=== PATIENT | female | born 1995 | race Caucasian/White ===

== ENCOUNTER 2017-01-31 08:41 | Inpatient (IN) | payer OTHER ==
[~2017-01-31] VITALS: Ht 149.9 cm; Wt 67.1 kg
[~2017-01-31 08:41] MED LIST: DOCU250C7 PO; OXYC5TAB72 PO; TYL325 PO
[2017-01-31] MEDS ORDERED: Ondansetron 2 mg/mL 2 mL Inj ONE (10:41)
[2017-01-31] MEDS ORDERED: Oxytocin 10 Unit/mL Inj ONE (10:41)
[2017-01-31] MEDS ORDERED: Morphine PF 1 mg/mL 10 mL Inj ONE (10:41)
[2017-01-31] MEDS ORDERED: Phenylephrine 10,000 mCg/mL Inj ONE (10:41)
[2017-01-31] MEDS ORDERED: Lidocaine PF 2% 10 mL Inj ONE (10:41)
[2017-01-31] MEDS ORDERED: Hemorrhage Kit, Post Partum XX ONE ×2 (10:45→18:35)
[2017-01-31] MEDS ORDERED: Methylergonovine 0.2 mg/mL Inj IM PRN ×2 (10:45→18:35)
[2017-01-31] MEDS ORDERED: Sodium Chloride LOK Flush 10 mL Syringe IVFLUSH PRN ×2 (10:45→18:35)
[2017-01-31] MEDS ORDERED: Oxytocin 30 Units/500 mL LR 30 UNITS in IV Premix 1 EACH IV PRN ×2 (10:45→18:35)
[2017-01-31] MEDS ORDERED: Carboprost 250 mCg/mL Inj IM PRN ×2 (10:45→18:35)
[2017-01-31] MEDS ORDERED: fentaNYL-PF 50 mCg/mL 2 mL Inj IVPUSH PRN (10:45)
[2017-01-31] MEDS ORDERED: Oxytocin 10 Unit/mL Inj IM PRN ×2 (10:45→18:35)
[2017-01-31 12:29] LABS: Mean Corpuscular Hemoglobin 29.7 pg (27.0-35.0); Mean Corpuscular Volume 89.6 fL (81-100)
[2017-01-31] MEDS: Lactated Ringer's 1,000 ML IV PRN (12:54)
[2017-01-31] MEDS ORDERED: fentaNYL 2 mCg/mL-Bupivicaine 0.125% 100 mL Premix EPIDURAL ONE (13:18)
--- NOTE | 2017-01-31 14:24 | HP ---
[address] [address] HISTORY AND PHYSICAL PATIENT: SUSANA DODD : 1995 MR#: [id number] ADMIT: 01/31/2017 JOB ID: [id number] CHIEF COMPLAINT: The patient presented complaining of contractions. HISTORY OF PRESENTING ILLNESS: This is a 21 years old 2, para 0-0-1-0 at 38 weeks and five days with expected date of delivery of February 09, 2017 dated by a 20 week ultrasound. The patient's complicated with: 1. Gestational diabetes on metformin. 2. Chronic GERD. 3. Marijuana use during . Patient stopped September 2016. 4. 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 5. Inadequate Pap smear. Plan for repeat Pap smear after delivery. 6. Oligohydramnios borderline, weak GIGI. Last GIGI was January 27, 2017, was 8 cm. 7. Chronic back pain. 8. History of suction D and C at 10 weeks. The patient presented today to visit with complaint of contractions and was sent to the [facility]. The cervix was 3 cm at presentation. On re-evaluation cervix was 3.5, 90% with bulging bag. The patient was admitted and around 11 a.m. had a spontaneous rupture of membranes. Meconium stained fluid. GYNECOLOGIC HISTORY: Last menstrual period unknown. Menstrual cycle is regular, every 1-3 months, lasts 3-7 days. Denies history of sexually transmitted infections. No history of herpes genital outbreak but she does have history of oral lesions and several positive for HSV 1 and 2. No history of abnormal Pap smear. Last Pap smear was unsatisfactory. History of suction D and C x1 at 10 weeks gestation. CONTROL: Used control control pills in the past and is considering a Mirena IUD for control. PAST OBSTETRIC HISTORY: She is 2, para 0-0-1-0, with a history of elective termination of at 10 weeks of gestation with suction D and C. PAST MEDICAL HISTORY: 1. History of chronic GERD. 2. History of chronic back pain. PAST SURGICAL HISTORY: Suction D and C. MEDICATIONS: 1. vitamins. 2. Acyclovir 500 mg q.12 hours started January 23, 2017. 3. Metformin 500 mg twice daily. 4. Vitamin D 2000 units daily. ALLERGIES: No known drug allergies. FAMILY HISTORY: Stroke maternal grandmother. Diabetes cousin and great grandmother. SOCIAL HISTORY: Denies alcohol or illicit drug abuse. Nonsmoker. She quit marijuana use September 2016. REVIEW OF SYSTEMS: A 10 point review of systems is negative except for the items in the history of the presenting illness. PHYSICAL EXAMINATION: Vital signs: BP 116/62, HR 71, SaO2 100% on RA General: Alert, oriented to time, place and person. Head: Normocephalic, atraumatic. Neck: Supple. Chest: Equal air entry bilaterally. No added sounds. Cardiovascular: Regular rate and rhythm. S1 plus S2 plus zero. Abdomen is gravid. No tenderness. Fundal height 38 cm. Pelvic examination as per RN on admission, 3.5 cm, 90% effaced, and bulging bag with spontaneous rupture of membrane noted later at approximately 11 a.m. Meconium stained fluid. Sterile speculum examination: Normal perineum , urethra and glands, normal vaginal epithelium, normal cervix with no evidence of HSV lesions. Cervix 5 cm/ 100%/-2 exam was done at 1330. LABORATORIES: labs: Blood type is A positive. Rubella immune. RPR nonreactive. Hepatitis B surface antigen negative, antibody screening is negative. Urine culture contaminated with lactobacillus. Diabetes screening elevated 175 at 25 weeks and 6 days and abnormal three hours glucose tolerance test. One hour fasting was 81, one hour was 220, two hours was 179, three hours was 124. HIV screening is negative. Group B strep culture negative on January 23, 2017. Baseline preeclampsia labs within normal limits were done at the [facility]. Protein creatinine ratio of 0.1. Gonorrhea chlamydia screening negative. Last growth ultrasound at the [facility] was December 29, 2016 with estimated weight of 36th percentile. Last GIGI January 27, 2017 was 8 cm. Presentation was cephalic. Admission labs: WNC 14.6, Hgb 13.1, Hct 39.1%, Plt 186, 000. ASSESSMENT: 1. This is a 21-year-old 2, para 0-0-1-0, at 38 weeks and five days with expected date of delivery of February 09, 2017 with active labor and spontaneous rupture of membrane at 11 a.m. January 31, 2017 with meconium stained fluid. Category one heart tone tracing. 2. Gestational diabetes on metformin. 3. History of positive HSV serology. No history of HSV lesions on suppressive therapy. Denies any recent lesions or prodromal symptoms, no lesions by Steril speculum exam. PLAN: Admission orders and labs were placed and anticipate normal vaginal delivery. MTDD
[2017-01-31] MEDS ORDERED: Lactated Ringer's 500 ML IV ONE (14:27)
[2017-01-31] MEDS ORDERED: Ondansetron 2 mg/mL 2 mL Inj IVPUSH PRN (14:30)
[2017-01-31] MEDS ORDERED: EPHEDrine Sulfate 50 mg/mL Inj IVPUSH PRN (14:30)
[2017-01-31] MEDS ORDERED: Atropine 1 mg/10 mL (Code) Syringe IVPUSH PRN (14:30)
[2017-01-31] MEDS ORDERED: Phenylephrine/NS-PF 100 mCg/mL 5 mL Syringe IVPUSH PRN (14:30)
[2017-01-31] MEDS ORDERED: fentaNYL 2 mCg/mL-Bupiv 0.125% 100 ML EPIDURAL SCH (14:30)
--- NOTE | 2017-01-31 14:36 | PCM.HPANE ---
Patient Data Date of Service: Jan 31, 2017 Surgeon Admitting Provider:Jazmyn Pierson MD Attending Provider:Jazmyn Pierson MD Primary Care Physician:Jazmyn Pierson MD Other Provider:Paco Mendez Anesthesia Reason for Visit Term Early Labor TERM EARLY LABOR Ht/WT & BMI Body Mass Index Allergies Coded Allergies: ibuprofen (Verified Adverse Reaction, Mild, STOMACH SWELLS, 07/21/12) Past Anesthesia History Anesthesia History: Denies:: Abnormal Airway, Anesthesia Reactions, Difficult Intubation, Fam Anesthesia Reaction, Fam Malignant Hypertherm, Malignant Hyperthermia Medications Reported Medications Acetaminophen-Expunged Drug, Do Not Renew! (Tylenol-Expunged Drug, Do Not Renew! )325 Mg [id number] Mg PO BID 07/21/12 Docusate Sod-Expunged Drug, Do Not Renew! 250 Mg [id number] Mg PO BID 07/21/12 oxyCODONE-Expunged, Do Not Renew! 5 Mg Tablet5 Mg PO EVERY 4HOURS PRN 1-2 TBAS 07/21/12 History History of ENT Problems?: No HEENT History: Denies:: Abnormal Airway Cataracts Difficult Intubation Dysphagia Glaucoma Hearing Problem Sinus Problem TMJ Denture Type: None Teeth Condition: Within Normal Limits Hx of Heart Problems?: No Cardiovascular History: Positive for:: Chest Pain Denies:: AICD Abdominal Aortic Aneurism Atrial Fibrillation Cardiac Surgery Congestive Heart Failure Coronary Artery Disease Edema Heart Murmur Hypertension Irregular Heartbeat Pacemaker Peripheral Vascular Rheumatic Fever Thrombophlebitis Valvular Heart Disease Other History/Comments Negative cardiac W/U without recurrent Sx/Pt, Mother Hx of Respiratory Problem?: No Respiratory History: Denies:: Asthma COPD Chest Surgery Cough Dyspnea Emphysema Hemoptysis Oxygen Administration Pneumonia Pulmonary Embolism Tuberculosis Use of C-PAP Machine Use of Inhalers / NEBS Hx Neurologic Problems?: No Hx of GI Problems?: No Hx of Problems?: No Hx Musculoskeletal Problems?: No Hx Surgeries?: No Other Pertinent History: Mother relates vague, nonspecific Hx of CP without provocative activity or noted pattern through high school years. Pt enies recent events. Mother claims extensive w/u involving crads, GI, General Hx Alcohol Use: NoHx Substance Use: No Smoking Status: Never Smoker Unknown if Ever Smoker Have You Smoked inLast 12 mo: No Stop/Bang Treated for Sleep Apnea?: No Do You Have a CPAP Machine?: No S-Snoring: Do You Snore Loudly: No T-Tired: feel tired, fatigued: No O-Obsered: Observed not breath: No P-Blood Pressure: treated: No B- Body Mass Index > 35 kg/m2: No A- Age over 50: No N- Neck Large Circumference: No G- Gender Male: No ARABELLA Risk Assessment: Low Risk, <3 Yes Risk Assessment Category Category 1A: Patient has history of documented sleep apnea, and HAS NOT received any narcotic, sedative or anesthesia administration during this stay. Category 1B: Patient has history of documented sleep apnea, and HAS received any narcotic , sedative or anesthesia administration during this stay Category 2: Patient has SUSPECTED Obstructive Sleep Apnea, and HAS received any narcotic , sedative or anesthesia administration during this stay. Category 3: Patient has SUSPECTED Obstructive Sleep Apnea and HAS NOT received narcotic, sedative or anesthesia administration during this stay. Category 4: Outpatient in Procedural Areas with known sleep apnea or who screen positive for High Risk via the STOP/BANG questionnaire. Exam Exam General Appearance: Alert, Oriented X3, Cooperative, No Acute Distress HEENT/AIRWAY: MP 2 Lungs: Clear to Auscultation, Normal Air Movement Heart: Exam Unremarkable Additional Information Gravid Abdomen; Normal appearing back/spine Meds/Labs/Diagnostics Labs Test 01/31/17 12:20 White Blood Count 14.6th/mm3 (3.8-10.1) Red Blood Count 4.41mil/mm3 (3.90-5.20) Hemoglobin 13.1g/dL (12.0-15.6) Hematocrit 39.5% (35.0-46.0) Mean Corpuscular Volume 89.6fL (81-100) Mean Corpuscular Hemoglobin 29.7pg (27.0-35.0) Mean Corpuscular Hemoglobin Concent 33.2% (32.0-37.0) Red Cell Distribution Width 13.6% (12.3-15.4) Platelet Count 186bil/L (150-400) Plan Impression Patient chart reviewed, patient interviewed and anesthestic plan with risks, benefits, and alternatives discussed, and informed consent obtained. NPO per Anesth. Guidelines: Yes ASA Physical Status: ASA2 Mod Systemic Disease Anesthetic Plan: Epidural Bene/Risks/Altern/Consents: Yes HP Complete Prior to Induction: Yes Gregory Camarena DO Jan 31, 2017 14:36
[2017-01-31] MEDS: Lactated Ringer's 1,000 ML IV SCH ×3 (16:59→22:27)
[2017-01-31] MEDS ORDERED: Sodium Citrate-Citric Acid 15 mL Solution ONE (17:21)
[2017-01-31] MEDS ORDERED: Sodium Citrate-Citric Acid 15 mL Solution PO SCH (17:30)
[2017-01-31] MEDS ORDERED: CeFAZolin Inj 2,000 MG in Dextrose 5% 50 ML IV SCH (17:40)
[2017-01-31] MEDS ORDERED: LANOlin HPA 7 Gm Ointment TOPICAL PRN (18:35)
[2017-01-31] MEDS ORDERED: diphenhydrAMINE 50 mg Capsule PO PRN (18:35)
[2017-01-31] MEDS ORDERED: Promethazine 25 mg Rectal Suppository RECTAL PRN (19:15)
[2017-01-31] MEDS: Acetaminophen IV 1,000 MG in IV Premix 1 EACH IV PRN (19:28)
[2017-02-01] MEDS: Acetaminophen IV 1,000 MG in IV Premix 1 EACH IV PRN ×2 (01:48→08:03)
--- NOTE | 2017-02-01 02:16 | OP ---
[address] [address] OPERATIVE REPORT PATIENT: SUSANA DODD : 1995 MR#: [id number] ADMIT: 01/31/2017 JOB ID: [id number] DATE OF SURGERY: 01/31/2017 PREOPERATIVE DIAGNOSIS(ES): 1. Nonreassuring heart tones remote from delivery. 2. Gestational diabetes, on metformin. 3. Borderline low amniotic fluid index. 4. Meconium-stained amniotic fluid. 5. HSV-1 and 2 positive serology. POSTOPERATIVE DIAGNOSIS(ES): 1. Nonreassuring heart tones remote from delivery. 2. Gestational diabetes, on metformin. 3. Borderline low amniotic fluid index. 4. Meconium-stained amniotic fluid. 5. HSV-1 and 2 positive serology. PROCEDURE: Primary section via low transverse uterine incision. SURGEON: Jazmyn Pierson MD LENS EDGER: 1. Natasha Lawton MD 2. Bette Parr DO, PGY-1 Special Officer Automat was required for retraction and exposure, safe delivery of the , and safe completion of the procedure. ANESTHESIA: Epidural was bolused. ESTIMATED BLOOD LOSS: 700 mL. INTRAVENOUS FLUID: 1000 mL. URINE OUTPUT: 200 mL. SPECIMEN: Placenta was sent for pathology evaluation. COMPLICATIONS: None. FINDINGS: Female weight 2902g (6lb6oz), with one nuchal cord and apgars 8 and 9 at one and five minutes respectively. Meconium stained amniotic fluid. Normal uterus , tubes and ovaries. INDICATION: This is a 21-year-old, 2, para 0-0-1-0, presented at 38 weeks and 5 days with active labor, followed shortly by spontaneous rupture of membranes at 11 a.m. Meconium-stained fluid. The patient progressed spontaneously in labor up to 6.5 cm dilated, 100% effaced, and -1 station. heart tones were initially category 1 then category 2 heart tone noted with moderate variability and persistent variable decelerations preceded by prolonged six minute decelerations noted earlier. Prolonged deceleration was down to the 60s, resolved with position change and IV hydration and oxygen to return to baseline of 120 with moderate variability and positive accelerations. Then, variable decelerations present with contractions down to the 80s. Amnioinfusion was started. A total of 500 mL was infused with no improvement in the variable deceleration. Reassessment of the cervix remained at 6.5 cm and 100% effacement. Risks, benefits and alternatives of continuing to monitor versus proceeding with a primary section for nonreassuring heart tones remote from delivery were discussed with the patient in detail. Family were present in the room. All questions were answered. The risks of section include, and not limited to, risk of infection, injury to other organs, risk of bleeding and blood transfusions, risk of anesthesia, risk of injury to the infant, and effect on future were all discussed in detail. The patient desires to proceed with a section. Informed consent was signed. PROCEDURE IN DETAIL: After informed consent was signed, the patient was taken to the operation room. She was placed under adequate anesthesia, then she was placed in supine position with left lateral tilt. Abdomen was prepped and draped in usual sterile manner for abdominal procedure. The patient was addressed and after confirmation of adequate anesthesia, a Pfannenstiel skin incision was made at the level of two finger widths above the symphysis pubis. The initial incision was carried down to the fascia with Bovie cautery. The initial fascial incision was made with a scalpel and was extended bilaterally in a curvilinear fashion using curved [place]. The superior aspect of the fascia was grasped with Katarzyna clamps on either sides of the midline. The fascia was then from underlying rectus muscles with blunt and sharp dissection. Then, attention was turned to the inferior aspect of the fascia layer that was grasped in either side of the midline and the fascia was dissected off the underlying rectus muscles with blunt and sharp dissection. The rectus muscles were then in the midline. The peritoneum was entered bluntly at area clear of the vascularity. The peritoneum opening was extended bilaterally with gentle traction. Bladder blade was placed to protect the bladder. The bladder flap was created with Metzenbaum scissors. The bladder blade was repositioned. The scalpel was used to incise the lower uterine segment. The uterine incision was then extended bilaterally with lateral traction. Then, the head was elevated out of the pelvis easily and delivered with moderate amount of fundal pressure. Nuchal cord was noted x1, that was released after delivery of the . Cord was clamped after one minute delayed clamping. Apgars were 8 and 9 at one and five minutes respectively. The sweatband cutting machine operator and ICU team were present in the OR for the delivery. The infant was handed off to the ICU team. The placenta was delivered manually intact and sent for pathology evaluation. The uterus was exteriorized and cleared of any remaining clots and debris. The uterine incision was closed with 0-Vicryl in a running, interlocking fashion. A second imbricating layer of 0 Monocryl was performed. The posterior cul-de-sac was cleared of any remaining clots and debris. The uterus was placed back into the abdominal cavity. Lateral gutters were irrigated and cleared of any remaining clots and debris. The uterine incision was re-examined. Hemostasis was ensured by cautery of superficial vessels in the lower uterine segment. Then, a third running stitch was performed in the middle segment of the uterine incision for hemostasis. Hemostasis was ensured and FloSeal was placed. Then, the rectus muscles were approximated in the midline with a single stitch of 2-0 chromic. The fascia was examined and the subfascial layer hemostasis was ensured. Then, the fascia was closed with 0-Vicryl in a running fashion. The subcutaneous layer was approximated with simple interrupted stitches of 2-0 chromic. The skin was closed with 4-0 Vicryl in subcuticular fashion followed by Steri-Strips. Pressure dressing was applied. All instrument, needles and sponge counts were correct x2. IJazmyn MD was present and scrubbed for the entire procedure. NATHALIA
[2017-02-01] MEDS: Lactated Ringer's 1,000 ML IV SCH ×5 (02:33→18:33)
[2017-02-01 07:45] LABS: Mean Corpuscular Hemoglobin 29.6 pg (27.0-35.0); Mean Corpuscular Volume 91.6 fL (81-100)
[2017-02-01] MEDS: Ascorbic Acid 500 mg Tablet PO SCH (09:21)
--- NOTE | 2017-02-01 10:56 | PCM.PNOBPP ---
Subjective Date of Service Feb 01, 2017 Lochia: Normal Pain Management: PO pain meds Gastrointestinal: Good Appetite Postop Activity: Ambulating in Room Only Labs Laboratory Tests 02/01/17 07:27: White Blood Count 15.5, Red Blood Count 3.21, Hemoglobin 9.5, Hematocrit 29.4, Mean Corpuscular Volume 91.6, Mean Corpuscular Hemoglobin 29.6, Mean Corpuscular Hemoglobin Concent 32.3, Red Cell Distribution Width 13.3, Platelet Count 157 Exam Vital Signs Vital Signs: VS reviewed, stable Exam Abdomen: Fundus firm Lungs: Clear to Auscultation General: Alert, Oriented X3 Surgical Wound : Incision General Appearence: Steri Strips, Sutures, Intact, Well Approximated, Incision Healing, No Erythemia, No Discharge OB Post Assessment/Plan Assessment 21 Y POD#1 S/P PCD for NRFHT postoperative anemia. GDM Fasting glucose 94. Metformin was D/C. Appropriate post op recovery. encourage ambulation. Remove Larson catheter and monitor for I/O. Advance diet. Anticipate discharge tomorrow. Jazmyn Pierson MD Feb 01, 2017 10:56
[2017-02-01] MEDS: oxyCODONE-Acetamin 5-325 mg Tablet PO PRN ×2 (16:53→21:12)
[2017-02-01] MEDS: hydrOXYzine Pamoate 25 mg Capsule PO PRN (21:12)
[2017-02-02] MEDS: Lactated Ringer's 1,000 ML IV SCH ×2 (02:33→10:33)
[2017-02-02] MEDS: hydrOXYzine Pamoate 25 mg Capsule PO PRN (03:00)
[2017-02-02] MEDS: oxyCODONE-Acetamin 5-325 mg Tablet PO PRN ×3 (03:12→12:56)
[2017-02-02] MEDS: Ascorbic Acid 500 mg Tablet PO SCH (08:53)
[2017-02-02] MEDS ORDERED: FERR-74 PO (12:51)
[2017-02-02] MEDS ORDERED: OXYC1TAB24 PO (12:51)
[2017-02-02] MEDS ORDERED: DOCU-41 PO (12:51)
[2017-02-02] MEDS ORDERED: Ascorbic Acid PO (12:51)
--- NOTE | 2017-02-02 12:55 | PCM.DC.OB ---
Obstetrical Discharge Summary Date of Service Feb 02, 2017 Date of hospital admission Jan 31, 2017 at 09:56 Date of Discharge: Feb 02, 2017 Providers Admitting Physician: Lissette Holt MD Primary Care Physician: Lissette Holt MD Attending Physician: Lissette Holt MD Problems: (1) Status post delivery Status: Acute ICD Code: Z98.891 (2) anemia Status: Acute ICD Code: O90.81 (3) Gestational diabetes Status: Acute ICD Code: O24.419 Hospital Course: Discharge Diagnosis status post delivery anemia Gestational diabetes Problems: (1) Status post delivery Status: Acute ICD Code: Z98.891 (2) anemia Status: Acute ICD Code: O90.81 (3) Gestational diabetes Status: Acute ICD Code: O24.419 Hospital Course: This is a 21 year-old 1 , now para 1 presented in active labor. Status post primary low transverse section for Nonreassuring heart tones remote from delivery on 01/31/17 , see operative note for details. COMPLICATED WITH: 1. Gestational diabetes on metformin. 2. Chronic GERD. 3. Marijuana use during . Patient stopped September 2016. 4. 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 5. Inadequate Pap smear. Plan for repeat Pap smear after delivery. 6. Oligohydramnios borderline, weak GIGI. Last GIGI was January 27, 2017, was 8 cm. 7. Chronic back pain. 8. History of suction D and C at 10 weeks. OUTCOME: female weight 2902g (6lb6oz) Apgars were 8 and 9 at one and five minutes respectively. DISCHARGE DAY EXAM: Postoperative day number 2, patient is ambulating, tolerating regular diet without nausea or vomiting and voiding without difficulty. Pain was well controlled. No chest pain, no headache or change in vision. VS: BP 125/70 HR 96 Respirations 18 Temp 35.5 General: Alert, Oriented X3 Lungs: Clear to Auscultation, Clear to Percussion Heart: Regular Rate/Rhythm, Normal S1, Normal S2 Abdomen: Fundus firm Surgical Wound: Incision General Appearance: Steri Strips, Sutures, Intact, Well Approximated, Incision Healing, No Erythema, No Discharge Extremities: No tenderness/swelling, Edema 1+ Lochia: normal. LABS: CBC Test 02/01/17 07:27 White Blood Count 15.5th/mm3 (3.8-10.1) Red Blood Count 3.21mil/mm3 (3.90-5.20) Hemoglobin 9.5g/dL (12.0-15.6) Hematocrit 29.4% (35.0-46.0) Mean Corpuscular Volume 91.6fL (81-100) Mean Corpuscular Hemoglobin 29.6pg (27.0-35.0) Mean Corpuscular Hemoglobin Concent 32.3% (32.0-37.0) Red Cell Distribution Width 13.3% (12.3-15.4) Platelet Count 157bil/L (150-400) labs: Blood type is A positive. Rubella immune. RPR nonreactive. Hepatitis B surface antigen negative, antibody screening is negative. Urine culture contaminated with lactobacillus. Diabetes screening elevated 175 at 25 weeks and 6 days and abnormal three hours glucose tolerance test. One hour fasting was 81, one hour was 220, two hours was 179, three hours was 124. HIV screening is negative. Group B strep culture negative on January 23, 2017. Baseline preeclampsia labs within normal limits were done at the [facility]. Protein creatinine ratio of 0.1. Gonorrhea chlamydia screening negative. Disposition: home. Discharge Condition: stable. Diet Discharge Diet: No restrictions Activity Discharge Activity-General: Pelvic Rest for 6 weeks, No lifting >10 pounds for 4-6 weeks Dressing and Incisional Care Dressing Care: Allow Steri Stripes to fall off Hygiene: May shower Follow Up Plan Follow-up Provider (F9): Lissette Holt MD Follow-up appointment: Weeks (1-2 ) Call your provider for: Fever or Chills, Shortness of breath, Heavy vaginal bleeding, Heavy bleeding, Epigastric pain, Excessive constipation, Vaginal discomfort, Red painful breasts, Other (leg swelling, pain or change in color. Hedache or change in vision. Nausea or vomiting. Depressed, sad or anxious. ) . ([Ascorbic Acid]) 500 MG TABLET 500 MG PO DAILYWM Prescribed by: LISSETTE HOLT MD Acetaminophen-Expunged Drug, Do Not Renew! (Tylenol-Expunged Drug, Do Not Renew! ) 325 Mg Tablet 500 MG PO BID (Reported) Docusate Sodium (Colace) 100 Mg Capsule 100 MG PO BID PRN PRN For Constipation Prescribed by: LISSETTE HOLT MD Ferrous Sulfate (Feosol) 325 Mg Tablet 325 MG PO BIDWM Prescribed by: LISSETTE HOLT MD oxyCODONE-Acetaminophen 5-325 mg (oxyCODONE-Acetaminophen 5-325 mg) 1 Each Tablet 1-2 TAB PO Q4H PRN PRN For Pain Prescribed by: MD Dangelo NI Omaima A MD Feb 02, 2017 12:55
[2017-02-02 13:08] VITALS: BP 125/70; PULSE 96; RESP 18
--- NOTE | 2017-02-06 07:46 | PATH ---
SURGICAL PATHOLOGY Attending Physician:Jazmyn Pierson CASE STATUS: Signed Out PATIENT NAME: SUSANA DODD. PID: [id number] : 1995 DATE COLLECTED:01/31/2017 00:00 SPECIMEN: Placenta CLINICAL HISTORY: GDM BORDERLINE FLUID NON REASSURING HEARTBEAT 1. PLACENTA FINAL DIAGNOSIS: 1.PLACENTA WITH UMBILICAL CORD AND MEMBRANES: 1. PLACENTA: 470 GRAMS, WHICH IS APPROXIMATELY THE 45TH PERCENTILE FOR 38 WEEKS 5 DAYS GESTATION SINGLE PLACENTAL INFARCT MEASURING 2.0 X 0.8 X 0.7 CM. Negative for significant inflammation. 2.UMBILICAL CORD: 6.5 CM IN LENGTH WITH A FURCATE INSERTION 5.5 CM FROM THE PLACENTAL EDGE. THREE NORMAL BLOOD VESSELS. Negative for significant inflammation. 3. MEMBRANES: MEMBRANES MINIMALLY ATTACHED. FOCAL CELLULAR PIGMENTATION CONSISTENT WITH MECONIUM STAINING. Negative for significant inflammation. ICD10 codeO24.429 M96.83 GROSS DESCRIPTION: The specimen is received in formalin, labeled with the patient's name and consists of an intact placenta and includes placental disc (470 g, 17.5 by 16.8 x 3.0 cm), umbilical cord (length-6.5 cm, diameter-1.1 and x 0.8 cm) and membranes. The membranes semi-translucent and are minimally attached; therefore, the rupture site cannot be determined. The umbilical cord has a furcate insertion 5.5 cm in from the edge of the placenta and contains 3 vessels. The surface is smooth and shiny and covered in green viscous material. The maternal surface is dark maroon with normal cotyledon formation. The placental disc is spongy and contains a yellow orange and solid rubbery nodule (2.0 x 0.8 x 0.7 cm). No hematomas, other nodules, masses, or lesions are identified. Section code: (A) edge of placenta with membranes, umbilical cord; (B-C, D, E-F) placenta, 3 full thickness sections. 02/02/17 JM MICRO DESCRIPTION: See diagnosis. ICD-9 CODES: CPT CODES: 1: 00174 Electronically Signed Out Arian Johnson MD [facility] [address] [place] [address] Technical component performed at [facility], [address], [place], [address]
== END 2017-02-02 14:15 | disposition home or self-care (01) | DRG 766 ==
LOC: FBCO 08:41 → FBC 09:56
PROVIDERS: ADMIT Obstetrics & Gynecology; ATTEND Obstetrics & Gynecology
PROC: 10D00Z1 Extraction of Products of Conception, Low, Open Approach (ICD-10-PCS; principal; 2017-01-31 17:30)
DX: O77.0 Labor and delivery complicated by meconium in amniotic fluid (principal); O76 Abnormality in fetal heart rate and rhythm complicating labor and delivery; O69.81X0 Labor and delivery complicated by cord around neck, without compression, not applicable or unspecified; O24.425 Gestational diabetes mellitus in childbirth, controlled by oral hypoglycemic drugs; O90.81 Anemia of the puerperium; D64.9 Anemia, unspecified; Z3A.38 38 weeks gestation of pregnancy; Z37.0 Single live birth